=== PATIENT | male | born 2000 | race Caucasian/White ===

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

== ENCOUNTER 2021-04-13 15:49 | Emergency (ER) | payer MEDICAID, SELFPAY ==
[2021-04-13 15:49] VITALS: BP 136/72; PULSE 88; RESP 18; TEMP 36.8; O2SAT 95; BMI 21.2
--- NOTE | 2021-04-13 17:49 | ED.RN ---
called pt to go to room with no response
== END 2021-04-13 17:48 | disposition left against medical advice (07) ==
LOC: ED 17:52
PROVIDERS: PCP Pediatrics
DX: Z53.21 Procedure and treatment not carried out due to patient leaving prior to being seen by health care provider (principal)

== ENCOUNTER 2021-05-10 15:09 | Emergency (ER) | payer OTHER, MEDICAID, SELFPAY ==
[2021-05-10 15:09] VITALS: BP 150/80; PULSE 76; RESP 16; TEMP 36.3; BMI 22.1
--- NOTE | 2021-05-10 15:29 | RAD_ITS ---
HISTORY: trauma EXAMINATION/TECHNIQUE: XR Foot Min 3 Views: COMPARISON: None FINDINGS: BONES/JOINTS: Deformity at the fourth MTP joint, displaced fracture not excluded but not well evaluated on the 2 views provided. Preservation of the remaining joint spaces. SOFT TISSUES: No soft tissue swelling or gas. No radiopaque foreign body. RAD/Foot min 3 Views IMPRESSION: Deformity of the fourth MTP joint, displaced fracture not excluded. Opposite oblique views of the forefoot may be useful to further evaluate this finding, otherwise limited CT through the distal metatarsals is recommended. at 1603 Reported and signed by: Thony Mcarthur MD Electronically Signed: Thony Mcarthur MD at 16:02 EDT Tel , Service support ,
--- NOTE | 2021-05-10 15:52 | ED.VIS.LOWEX ---
HPI History of Present Illness Chief Complaint: Lower Extremity Injury Informant: patient Narrative Narrative: 20-year-old male got in the shower and use the bathroom. Slipped on some water resulting in a hyperextension of the left foot. His foot then came forward and struck the wall in a plantar flexed position. He notes pain with bearing weight. He reports that he is able to pull his toes back towards head but is very painful. He notes pain over the midfoot PFSH PFSH Home Medications risperidone 1 mg tablet 1 mg PO QDAY 02/14/18 [History Last Taken Unknown] Allergy/AdvReac Type Severity Reaction Status Date / Time No Known Allergies Allergy Verified 05/10/21 15:09 Surgical History History of tonsillectomy Social History (Updated 05/10/21 @ 15:[address] Ajay Smith DO) current gender identity: male Smoking Status: Never smoker ROS ROS ED Constitutional Constitutional ED: Denies chills or weight loss Eyes Eyes: Denies change in vision or diplopia ENT ENT ED: Denies ear pain, rhinorrhea or sore throat Cardiovascular Cardiovascular: Denies chest pain, orthopnea, palpitations or racing heartbeat Respiratory/Chest Respiratory/Chest: Denies cough, dyspnea or orthopnea Gastrointestinal Gastrointestinal: Denies abdominal pain, diarrhea, nausea or vomiting Genitourinary Genitourinary ED: Denies dysuria, hematuria or urinary frequency Musculoskeletal Musculoskeletal: Reports other Details: See history of present illness ; Denies arthralgias or myalgias Integumentary Denies abscess or rash Neurologic Neurologic: Denies headache(s) or weakness Psychiatric Psychiatric: Denies anxiety, depression, suicidal ideation or suicidal thoughts Endocrine Endocrinology: Denies polydipsia, polyphagia or polyuria Allergic/Immunologic Allergic/Immunologic ED: Denies mouth swelling, tongue swelling or urticaria EXAM Physical Exam Const Vital Signs: 05/10/21 15:09 Temperature 97.3 F L Temperature Source Temporal Pulse Rate 76 Respiratory Rate 16 Blood Pressure 150/80 H Blood Pressure Mean 103 Positive well nourished and well developed General Appearance ED: well developed HEENT Reports normocephalic, head/scalp atraumatic and moist mucous membranes normocephalic and atraumatic Eyes PERRL and EOMs intact bilaterally Eyes Narrative: EOMI Neck full ROM, no lymphadenopathy, supple and no JVD Resp normal respiratory effort and clear to auscultation bilaterally Cardio regular rate, regular rhythm and no murmurs GI normal to inspection, nondistended, normoactive bowel sounds and non-tender Auscultation: normoactive bowel sounds Palpation: soft Back/Spine no CVA tenderness and normal ROM Lumbar Spine / Lower Back: Negative for lumbar spinal tenderness Extremity Extremity Narrative: Patient has tenderness and some mild swelling over the dorsum of the left midfoot. Neurovascularly appears intact. The Achilles appears intact on Taylor's test and on palpation. No fibular head tenderness. General Extremety ED: Negative for edema General Extremity: Negative for edema Neuro oriented x3 and CN's II-XII intact bilaterally Sensorium / Orientation: alert Motor Exam: strength 5/5 throughout Psych mental status grossly normal Mood & Affect: Negative for depressed or tearful Skin no rashes or lesions noted and no wounds MDM MDM MDM Narrative Medical decision making narrative: My interpretation of the plain films of the left foot is no acute fracture. We will treat this as a sprain with Bruce wrap surmise crutches. Rice therapy Of note radiology reads a deformity of the fourth MTP joint displaced fracture not excluded. The patient has no tenderness or swelling at this spot. Therefore I do not believe this represents a fracture. Radiography Diagnostic Testing: Clinical Impression(s) from Imaging Studies Foot X-Ray 05/10/21 15:29 IMPRESSION: Deformity of the fourth MTP joint, displaced fracture not excluded. Opposite oblique views of the forefoot may be useful to further evaluate this finding, otherwise limited CT through the distal metatarsals is recommended. at 1603 Reported and signed by: Thony Mcarthur MD Electronically Signed: Thony Mcarthur MD at 16:02 EDT Tel , Service support , Discharge Plan Triage Chief Complaint: Lower Extremity Injury ED Provider: Ajay Smith Dx/Rx/DC Orders Clinical Impression: Sprain of foot, left Instructions: ED Foot Sprain Prescriptions: No Action risperidone [Risperdal] 1 mg tablet 1 mg PO QDAY RF: 0 Primary Care Provider: Nain Rice Referrals: Nain Rice DO [Primary Care Provider] - As Needed Molly Ty DPM [STAFF PHYSICIAN] - 10-14 Days if not better Disposition Disposition: Home, Self Care
== END 2021-05-10 16:39 | disposition home or self-care (01) ==
PROVIDERS: Emergency Provider Emergency Medicine; PCP Pediatrics
DX: S93.602A Unspecified sprain of left foot, initial encounter (principal); M21.962 Unspecified acquired deformity of left lower leg; W01.0XXA Fall on same level from slipping, tripping and stumbling without subsequent striking against object, initial encounter; Y93.9 Activity, unspecified; Y92.9 Unspecified place or not applicable
CPT/HCPCS: 73630; 99282

== ENCOUNTER 2021-06-28 19:50 | Emergency (ER) | payer OTHER, MEDICAID, SELFPAY ==
[2021-06-28 19:51] VITALS: BP 138/75; PULSE 98; RESP 16; TEMP 37.1; O2SAT 98; BMI 22.8
--- NOTE | 2021-06-28 20:29 | EX.ED.DYSGE1 ---
HPI History of Present Illness Chief Complaint: Wound Detail of Chief Complaint: Pain due to lower right lip piercing with bleeding Onset/Context/Timing Onset: Days (2 days ago) Context: Sudden Onset Timing: Continuous Quality: Page/discomfort Location: Low lip right side Current Severity: Mild Maximum Severity: Moderate Worsened by: Movement of piercing Relieved by: Nothing Associated Symptoms Associated Symptoms: Bleeding Narrative Narrative: Patient is a 20-year-old male with no sniffing medical problems who presents because of pain and bleeding status post piercing of his lower lip right side. He has no other complaints. Prior similar symptoms: No Recent Illness/Hospitalization: No PFSH PFSH Home Medications paliperidone palmitate [Invega Sustenna] 156 mg IM QMONTH 06/28/21 [History Last Taken Unknown] Allergy/AdvReac Type Severity Reaction Status Date / Time No Known Allergies Allergy Verified 06/28/21 19:52 Surgical History History of tonsillectomy Social History (Updated 06/28/21 @ 20:[address] Layo Duke MD) Smoking Status: Never smoker substance use type: does not use ROS ROS ED Constitutional Constitutional ED: Denies chills, fever(s), subjective or sweats Eyes Eyes: Denies blurry vision, change in vision or diplopia ENT ENT ED: Denies ear pain, rhinorrhea or sore throat Integumentary Denies abscess, Abrasions or rash EXAM Physical Exam Const Vital Signs: 06/28/21 19:51 Temperature 98.7 F Temperature Source Temporal Pulse Rate 98 Respiratory Rate 16 Blood Pressure 138/75 H Blood Pressure Mean 96 Pulse Ox 98 Oxygen Delivery Method Room Air Positive well nourished and well developed General Appearance ED: well developed and NAD; Negative for cyanotic or diaphoretic HEENT Reports moist mucous membranes HEENT Narrative: Patient has bruising of the lower lip due to piercing. There is slight blood noted. There is no purulent drainage. There is no erythema, there is no warmth, there is no fluctuance. There is no submental or submandibular lymphadenopathy noted. trauma and tenderness Eyes PERRL and EOMs intact bilaterally General Eye ED: Negative for pale conjunctiva or scleral icterus Neck no lymphadenopathy, supple and no JVD General: tenderness Resp normal respiratory effort Cardio regular rate and regular rhythm Neuro oriented x3 and CN's II-XII intact bilaterally Sensorium / Orientation: alert Psych mental status grossly normal Skin no rashes or lesions noted and No no wounds Wounds: wounds noted MDM MDM MDM Narrative Medical decision making narrative: Patient with bruise due to piercing. He wishes ring to be removed. Ring was removed by me using 2 hemostats. This was performed without difficulty. Discharge Plan Triage Chief Complaint: Wound ED Provider: Layo Duke Dx/Rx/DC Orders Clinical Impression: Contusion of lip, initial encounter, Body piercing Instructions: ED Facial Contusion Prescriptions: No Action Invega Sustenna 156 mg/mL syringe 156 mg IM QMONTH RF: 0 Primary Care Provider: Nain Rice Referrals: Nain Rice DO [Primary Care Provider] - As Needed Disposition Disposition: Home, Self Care
== END 2021-06-28 20:44 | disposition home or self-care (01) ==
LOC: ED 20:42
PROVIDERS: Emergency Provider Emergency Medicine; PCP Pediatrics
DX: S00.531A Contusion of lip, initial encounter (principal); W45.8XXA Other foreign body or object entering through skin, initial encounter; Y93.9 Activity, unspecified; Y92.9 Unspecified place or not applicable
CPT/HCPCS: 99282